=== PATIENT | male | born 1940 | race Caucasian/White ===

== ENCOUNTER 2022-04-08 11:25 | Day surgery (SDC) | payer MEDICARE, BC ==
[~2022-04-08] VITALS: Ht 177.8 cm; Wt 92.7 kg
[2022-04-08] MEDS ORDERED: PREVACID 30MG30 M1 PO (12:12)
[2022-04-08] MEDS ORDERED: SYNTHROID0.125 MG/T PO (12:16)
[2022-04-08 12:17] VITALS: BP 147/82; PULSE 77; TEMP 97.5
[2022-04-08] MEDS ORDERED: ZYRTEC 10MG10 MG PO (12:31)
[2022-04-08] MEDS ORDERED: MOBIC15 MG PO (12:32)
[2022-04-08] MEDS ORDERED: LASIX 20MG TABL20 MG PO (12:32)
[2022-04-08] MEDS ORDERED: ATACAND32 MG PO (12:33)
[2022-04-08] MEDS ORDERED: MASON NATURAL2000 IU PO (12:33)
[2022-04-08] MEDS ORDERED: PRAVACHOL 40MG40 MG PO (12:33)
[2022-04-08] MEDS ORDERED: SINEMET 25/101 UDTAB PO (12:34)
[2022-04-08] MEDS ORDERED: FLOMAX 0.40.4 MG/CAP PO (12:35)
--- NOTE | 2022-04-08 12:38 | NUR ---
ATTEMPTED TO SCAN IN MECLIZINE AND LR IN EM[facility]. UNABLE TO DO SO, ADMISSIONS NOTIFIED OF PROMPT GIVEN BUT THEY ARE UNABLE TO FIX IT. MEDICATIONS ADMINISTERED AFTER PATIENT WAS PROPERLY IDENTIFIED AND MEDICATION WAS IDENTIFIED THE CORRECT MEDICATION.
[2022-04-08] MEDS ORDERED: NORCO 325 MG-51 TAB PO (15:24)
[2022-04-08 16:00] VITALS: BP 151/75; PULSE 62; TEMP 98.2
[2022-04-08 16:15] VITALS: BP 145/81; PULSE 65
[2022-04-08 16:30] VITALS: BP 149/78; PULSE 61
[2022-04-08 16:38] VITALS: BP 145/87; PULSE 57; TEMP 97
--- NOTE | 2022-04-08 17:41 | NUR ---
1600: Patient arrived back into bay 7 from PACU. Patient is alert and oriented. Vital signs stable on room air. Report received from TEDDY Christianson. Patient requesting sprite and blueberry muffins. Patient denies pain and nausea. Call light left within reach. Son and at bedside. Dr. Mcpherson previously in to see patient's family 1615: Patient vitally stable. Tolerating food and drink well. Denies pain or nausea at this time. [id number]: Patient ambulated to restroom via stand by assist and cane. Unable to void at this time. Patient back in room. Denies pain or nausea at this time. 1700: Patient states he feels like he needs to have a bowel movement. Patient escorted to restroom via stand by assist and cane. 1715: Patient able to void successfuly, hematuria noted. Had a bowel movement. Patient escorted back into room and got dressed with assistance from . 1730: Patient meets discharge criteria. IV removed without complications. Went through discharge instructions with patient and family. Escorted to patient entrance via wheelchair. Patient got into personal vehicle unassisted and left in the care of his family.
== END 2022-04-08 17:40 | disposition home or self-care (01) ==
LOC: SDCO 11:25
DX: N20.0 Calculus of kidney (principal); K21.9 Gastro-esophageal reflux disease without esophagitis; Z79.899 Other long term (current) drug therapy
CPT/HCPCS: C1769; C2617; J0690; J1885; J2405; J2704